=== PATIENT | male | born 1955 | race Caucasian/White ===

== ENCOUNTER 2018-03-20 02:42 | Day surgery (SDC) | payer OTHER ==
[2018-03-20] VITALS (7 sets, daily range): BP systolic 118–153; BP diastolic 82–105
[~2018-03-20] VITALS: Ht 182.9 cm; Wt 103.4 kg
[~2018-03-20 02:42] MED LIST: ASPIRIN; ATEN-1 PO; CENTRUM VITAMIN; CHOL10005 PO; FOLIC ACID; GLUCOSAMINE; LISI-362 PO; MULT1CAP59 PO; ROSU5TAB3 PO; SIMV-42 PO; VITAMIN C
[2018-03-20] MEDS ORDERED: PROPOFOL EMUL(*) 10MG/ML 20 ML 40 ML ONE (10:56)
[2018-03-20] MEDS ORDERED: LIDOCAINE MPF 1% 5 ML VIAL ONE (10:56)
[2018-03-20] MEDS ORDERED: LIDOCAINE/SOD BICARB 8.4% SYR ID ONE (11:30)
[2018-03-20] MEDS ORDERED: NORMOSOL R SOLN(*) 1000 ML BAG 1,000 ML IV PRN (11:30)
== END 2018-03-20 11:50 | disposition home or self-care (01) ==
LOC: OR 02:42
PROVIDERS: ATTEND Family Medicine
DX: Z12.11 Encounter for screening for malignant neoplasm of colon (principal); K57.30 Diverticulosis of large intestine without perforation or abscess without bleeding
CPT/HCPCS: 00812; 45378; J2001; J2704

== ENCOUNTER → 2018-11-27 | Outpatient (CLI) | payer OTHER | LOC: LAB 16:31 | PROVIDERS: ATTEND Nurse Practitioner | DX: L98.9 Disorder of the skin and subcutaneous tissue, unspecified (principal) | CPT/HCPCS: 88305 ==